=== PATIENT | female | born 1930 | race Caucasian/White ===

== ENCOUNTER → 2017-01-19 | Outpatient (CLI) | payer MEDICARE, MEDICAID ==
[~2017-01-19] MED LIST: ASPIRIN LO-DOSE81 MG PO; CALCIUM 600 +1 EAC7 PO; COZAAR50 MG PO; FOSAMAX70 MG PO; HYDRODIURIL25 MG PO; ICAPS TABLET1 EACH PO; LIPITOR40 MG PO; LOPRESSOR25 MG PO; NITROGLYCERIN0.4 MG SL; PROTONIX40 MG PO; RANEXA ER500 MG PO; VITAMIN D-32000 UNI1 PO; VOLTAREN75 MG PO
== END | disposition disaster alternative care site (69) ==
LOC: GRAD 13:59
PROC: 3E0U33Z Introduction of Anti-inflammatory into Joints, Percutaneous Approach (ICD-10-PCS; principal; 2017-01-19)
PROC: 3E0U3BZ Introduction of Anesthetic Agent into Joints, Percutaneous Approach (ICD-10-PCS; 2017-01-19)
DX: M17.0 Bilateral primary osteoarthritis of knee (principal)